=== PATIENT | female | born 1960 | race Caucasian/White ===

== ENCOUNTER 2020-05-20 12:28 | Emergency (ER) | payer BC ==
[2020-05-20 13:01] LABS: HEMOGLOBIN 13.5 gm/dl (12.3-15.3); RED BLOOD COUNT 5.15 M/UL (4.00-5.10)
[2020-05-20 13:26] LABS: BUN/CREATININE RATIO 14 (0-10)
[2020-05-20] MEDS ORDERED: ZOFRAN4 MG PO (18:25)
[2020-05-20] MEDS ORDERED: PROTONIX40 MG PO (18:25)
== END 2020-05-20 18:44 | disposition home or self-care (01) ==
LOC: ER1 12:28
PROVIDERS: Family Medicine
DX: R10.13 Epigastric pain (principal); R11.0 Nausea; K44.9 Diaphragmatic hernia without obstruction or gangrene; E11.9 Type 2 diabetes mellitus without complications; Z79.84 Long term (current) use of oral hypoglycemic drugs
CPT/HCPCS: 71045; 80053; 82150; 82550; 82553; 83690; 83874; 84484; 85025; 93005; 99284